=== PATIENT | female | born 1960 | race Two or more races ===

== ENCOUNTER 2022-11-14 20:02 | Inpatient (IN) | payer MEDICAID ==
[~2022-11-14] VITALS: Ht 162.6 cm; Wt 59.6 kg
[2022-11-14 21:09] LABS: Urine Bacteria FEW /hpf (None Seen); Urine Blood Negative /uL (Negative); Urine Specific Gravity 1.004 (1.001-1.035); Urine WBC 3 /hpf (0 - 5)
[2022-11-14 22:07] LABS: Albumin 3.8 g/dL (3.4-5.0); BUN/Creatinine Ratio 14.3 (10.0-20.0); Calcium 9.5 mg/dL (8.5-10.1); Potassium 3.8 mmol/L (3.5-5.1)
[2022-11-14 22:10] LABS: Bilirubin, Total 0.4 mg/dL (0.2-1.0); Total Protein 7.8 g/dL (6.4-8.2)
[2022-11-14 22:17] LABS: Basophils # (auto) 0.1 10 ^3/uL (0-0.2); Basophils % (auto) 0.7 % (0.0-2.0); Eosinophils # (auto) 0.2 10 ^3/uL (0-0.8); Eosinophils % (auto) 2.1 % (0.0-7.0); Hematocrit 37.7 % (36.0-46.0); Lymphocytes # (auto) 3.3 10 ^3/uL (0.4-5.4); Lymphocytes % (auto) 31.7 % (10.0-50.0); Mean Corpuscular Hemoglobin 32.3 pg (28.0-32.0); Mean Corpuscular Hgb Conc. 34.5 g/dL (32.0-36.0); Mean Corpuscular Volume 93.7 fL (80.0-100.0); Monocytes # (auto) 0.8 10 ^3/uL (0-1.3); Monocytes % (auto) 7.7 % (0.0-12.0); Neutrophils % (auto) 57.8 % (37.0-80.0); Red Blood Cells 4.03 10^6/uL (4.0-5.20); Red Cell Distribution Width 13.2 % (11.8-14.3); White Blood Cell 10.3 10^3/uL (4.4-10.8)
[2022-11-15] MEDS ORDERED: ONDANSETRON HCL 4 MG/2 ML VIAL IV PRN (01:00)
[2022-11-15] MEDS ORDERED: MORPHINE SULFATE INJ 2 MG/ml SYRG IV PRN (01:00)
[2022-11-15] MEDS ORDERED: DEXTROSE (50%) 50ML SYRG IV PRN (01:00)
[2022-11-15] MEDS ORDERED: cefTRIAXone 1GM/50ML D5W 50 ML IV ONE (01:00)
[2022-11-15] MEDS ORDERED: DOCUSATE SOD 100 MG CAP PO PRN (01:00)
[2022-11-15] MEDS ORDERED: NITROGLYCERIN 0.4 MG SL TAB SL PRN (01:00)
[2022-11-15] MEDS ORDERED: ACETAMINOPHEN 325 MG TAB PO PRN (01:00)
[2022-11-15 04:35] LABS: Basophils # (auto) 0.1 10 ^3/uL (0-0.2); Eosinophils # (auto) 0.2 10 ^3/uL (0-0.8); Eosinophils % (auto) 3.3 % (0.0-7.0); Hemoglobin 11.9 g/dL (12.2-16.2); Lymphocytes # (auto) 2.4 10 ^3/uL (0.4-5.4); Mean Corpuscular Hemoglobin 32.9 pg (28.0-32.0); Monocytes # (auto) 0.5 10 ^3/uL (0-1.3); Monocytes % (auto) 7.4 % (0.0-12.0); Neutrophils # (auto) 3.2 10 ^3/uL (1.6-8.6); Neutrophils % (auto) 50.3 % (37.0-80.0); Nucleated Red Blood Cells % 0.1 %; Red Blood Cells 3.62 10^6/uL (4.0-5.20); Red Cell Distribution Width 13.2 % (11.8-14.3); White Blood Cell 6.3 10^3/uL (4.4-10.8)
[2022-11-15 04:51] LABS: Albumin 3.2 g/dL (3.4-5.0); BUN/Creatinine Ratio 13.6 (10.0-20.0); Calcium 9.1 mg/dL (8.5-10.1); Potassium 3.9 mmol/L (3.5-5.1)
[2022-11-15 04:54] LABS: Bilirubin, Total 0.5 mg/dL (0.2-1.0); Total Protein 6.7 g/dL (6.4-8.2)
[2022-11-15] MEDS: SODIUM CHLOR 0.9% PF (SALINE LOCK) 10ML VIAL/SYR IV SCH ×3 (06:19→22:00)
[2022-11-15] MEDS: InsuLIN REG 1unit/0.01ml Soln (100units/ml) SC SCH ×4 (07:00→22:00)
[2022-11-15] MEDS: ACCU-CHEK COMFORT CURVE STRIP VI SCH ×4 (07:13→22:00)
[2022-11-15] MEDS: HYDROcodone-ACET 5/325MG TAB PO PRN ×2 (10:48→20:56)
[2022-11-15] MEDS ORDERED: ASPirin 81 mg TAB PO ONE (13:15)
[2022-11-15] MEDS: cefTRIAXone 1GM/50ML D5W 50 ML IV SCH (21:08)
[2022-11-16 05:18] LABS: Basophils # (auto) 0.1 10 ^3/uL (0-0.2); Basophils % (auto) 0.8 % (0.0-2.0); Eosinophils # (auto) 0.2 10 ^3/uL (0-0.8); Eosinophils % (auto) 3.6 % (0.0-7.0); Hematocrit 36.3 % (36.0-46.0); Hemoglobin 12.7 g/dL (12.2-16.2); Lymphocytes # (auto) 2.3 10 ^3/uL (0.4-5.4); Mean Corpuscular Hemoglobin 32.5 pg (28.0-32.0); Mean Corpuscular Volume 92.9 fL (80.0-100.0); Monocytes # (auto) 0.5 10 ^3/uL (0-1.3); Monocytes % (auto) 8.3 % (0.0-12.0); Neutrophils # (auto) 3.5 10 ^3/uL (1.6-8.6); Neutrophils % (auto) 52.3 % (37.0-80.0); Nucleated Red Blood Cells % 0.1 %; Red Blood Cells 3.91 10^6/uL (4.0-5.20); Red Cell Distribution Width 13.2 % (11.8-14.3); White Blood Cell 6.6 10^3/uL (4.4-10.8)
[2022-11-16 05:31] LABS: Albumin 3.2 g/dL (3.4-5.0); Potassium 3.9 mmol/L (3.5-5.1)
[2022-11-16 05:36] LABS: BUN/Creatinine Ratio 23.7 (10.0-20.0); Bilirubin, Total 0.4 mg/dL (0.2-1.0); Total Protein 6.7 g/dL (6.4-8.2)
[2022-11-16] MEDS: SODIUM CHLOR 0.9% PF (SALINE LOCK) 10ML VIAL/SYR IV SCH ×3 (06:12→21:53)
[2022-11-16] MEDS: InsuLIN REG 1unit/0.01ml Soln (100units/ml) SC SCH ×4 (07:00→21:54)
[2022-11-16] MEDS: ACCU-CHEK COMFORT CURVE STRIP VI SCH ×4 (07:01→21:54)
[2022-11-16] MEDS: ASPirin 81 mg TAB PO SCH (10:14)
[2022-11-16 12:23] VITALS: BP 155/89
[2022-11-16 13:00] VITALS: BP 155/89
[2022-11-16 17:00] VITALS: BP 156/81
[2022-11-16 20:00] VITALS: BP 152/86
[2022-11-16] MEDS: cefTRIAXone 1GM/50ML D5W 50 ML IV SCH (21:53)
[2022-11-16 22:00] VITALS: BP 152/86
[2022-11-17] MEDS ORDERED: AMLO-489 PO (01:23)
[2022-11-17] MEDS ORDERED: ATOR20TA50 PO (01:23)
[2022-11-17] MEDS ORDERED: METF-372 PO (01:23)
[2022-11-17] MEDS ORDERED: LISI-275 PO (01:23)
[2022-11-17 05:00] VITALS: BP 132/68
[2022-11-17] MEDS: ACCU-CHEK COMFORT CURVE STRIP VI SCH ×2 (06:19→11:54)
[2022-11-17] MEDS: SODIUM CHLOR 0.9% PF (SALINE LOCK) 10ML VIAL/SYR IV SCH (06:19)
[2022-11-17] MEDS: InsuLIN REG 1unit/0.01ml Soln (100units/ml) SC SCH ×2 (06:19→11:30)
[2022-11-17 09:00] VITALS: BP 130/73
[2022-11-17] MEDS: ASPirin 81 mg TAB PO SCH (09:33)
[2022-11-17] MEDS ORDERED: ASPI-498 PO (10:29)
[2022-11-17] MEDS ORDERED: CIPR-173 PO (10:29)
[2022-11-17 13:00] VITALS: BP 126/73
== END 2022-11-17 15:30 | disposition home or self-care (01) | DRG 463 ==
LOC: ER 20:02 → TELE 11-15 00:59 → TELE-CENTR 11-16 12:23 → CENTRAL 11-16 15:14
PROVIDERS: ADMIT Nurse Practitioner Family; ATTEND Family Medicine
DX: N39.0 Urinary tract infection, site not specified (principal); E11.9 Type 2 diabetes mellitus without complications; G44.009 Cluster headache syndrome, unspecified, not intractable; E78.00 Pure hypercholesterolemia, unspecified; Z20.822 Contact with and (suspected) exposure to COVID-19; M79.622 Pain in left upper arm; F32.A Depression, unspecified; I10 Essential (primary) hypertension; Z86.73 Personal history of transient ischemic attack (TIA), and cerebral infarction without residual deficits; Z90.49 Acquired absence of other specified parts of digestive tract
CPT/HCPCS: 36415; 70450; 72125; 80053; 81001; 82962; 84484; 85025; 87086; 87426; 87804; 93005; 96365; G0378; J0696; J1815

== ENCOUNTER 2023-03-02 12:27 | Emergency (ER) | payer MEDICAID ==
[~2023-03-02] VITALS: Ht 152.4 cm; Wt 57.4 kg
[~2023-03-02 12:27] MED LIST: AMLO1TAB22 PO; ASPI-498 PO; ATOR20TA50 PO; CIPR-173 PO; LISI-275 PO; METF-372 PO
[2023-03-02 14:07] VITALS: BP 121/79
[2023-03-02] MEDS ORDERED: ASPI1TAB20 PO (14:42)
== END 2023-03-02 14:57 | disposition home or self-care (01) ==
LOC: ER 12:27
DX: H92.03 Otalgia, bilateral (principal); E11.9 Type 2 diabetes mellitus without complications; F32.9 Major depressive disorder, single episode, unspecified; I10 Essential (primary) hypertension; E78.5 Hyperlipidemia, unspecified; Z79.82 Long term (current) use of aspirin; Z79.899 Other long term (current) drug therapy; Z90.89 Acquired absence of other organs

== ENCOUNTER 2024-11-12 16:42 | Emergency (ER) | payer OTHER, MEDICAID ==
[~2024-11-12] VITALS: Ht 157.5 cm; Wt 51.0 kg
[~2024-11-12 16:42] MED LIST changes: +ASPI1TAB20 PO
--- NOTE | 2024-11-12 17:24 | ECG ---
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
--- NOTE | 2024-11-12 18:16 | ED.PDOC ---
HPI (NEURO) HPI Comments 64-year-old female presents with a chief complaint of right-sided forehead headache with the associated right eye vision loss for the last four days. Pain is nonradiating, describes as sharp and rates her pain a 6/10. Patient also mentions that she has been having spontaneous blurred vision in her right eye. Patient denies any trauma or falls prior to onset of symptoms. PMHx: DM, HLD, HTN, Depression PSHx: Appendectomy, Cholecystectomy HPI: Poor Historian. REVIEW OF SYSTEMS: CONSTITUTIONAL: Denies acute: fever, diaphoresis, chills, generalized weakness. HEAD: Denies acute: photophobia Eyes: Denies acute: Double vision, eye pain, eye discharge. EARS: Denies acute: tinnitus, hearing loss, ear discharge, ear pain, THROAT: Denies acute: sore throat, swelling, difficulty swallowing , pain with swallowin g, change in voice. NECK: Denies acute: neck pain, neck swelling, stiff neck. HEART: Denies acute : chest pain, palpitations, LUNGS: Denies acute: SOB, wheezing, cough, hemoptysis ABDOMEN: Denies acute: abdominal pain, Nausea, Vomiting, diarrhea, melena , hematemesis, hematochezia SKIN: Denies acute: rash, redness, lesions, itchiness. EXTREMITIES: Denies acute: calf pain, numbness, tingling, weakness, denies pain in extremity. Denies acute: Low back pain. Neuro: Denies acute: focal neurological deficit, motor or sensory focal neurological deficit, tremors, seizure like activity, confusion, dizziness, change in mental status, loss of bowel or bladder function, cauda equina like symptoms. : Denies acute: dysuria, hematuria, flank pain, increase in urinary frequency. PSYCH: Denies acute: hallucination, suicidal ideation, homicidal ideation. FEMALE: Denies acute: abnormal vaginal bleeding, foul odor, unusual discharge. PHYSICAL EXAM: General: no acute distress, awake and alert. Head: normocephalic, atraumatic. Neck: supple, trachea is midline, no swelling. Throat: Normal phonation. Eyes:, no erythema, no purulent discharge, no proptosis, no icterus. No swelling Heart: regular rate, regular rhythm, no significant murmur appreciated. Lungs: no apparent respiratory distress, Able to speak in full sentences. No wheezing, no rhonchi, no crackles. No stridors Clear to auscultation bilaterally. Abdomen: non tender to palpation, non distended, soft, no guarding, no rebound, + bowel sounds. Neuro: Awake, Alert, oriented to name, self, situation, follows commands GCS=15. Speech is normal. Skin: no petechia, no purpura, no cyanosis, non-pale, not jaundice. Lower extremities: --no - Pitting edema no deformity, no focal swelling, no calf TTP. Makes eye contact. moves all four extremities. Face: no apparent facial droop. Ambulating in the ED independently. Ears: Normal appearing TM b/l, Stroke: finger to nose cerebellar testing is intact. No pronator drift. PERRLA, EOM-I CN 2-12 are grossly intact, Pedal pulses are palpable. No nystagmus. No nuchal rigidity, Kernig's sign, Brudzinski's sign, no meningeal signs. ED COURSE: Chief Complaint: Eye Problem Time Seen by MD: 18:12 Primary Care Provider: NONE Reviewed Notes: Nurses Notes, Medications, Allergies Information Source: Patient Mode of Arrival: Ambulatory Past Medical History PAST MEDICAL HISTORY: Depression, DM, High Lipids, HTN Surgical History: Appendectomy, Cholecystectomy ELECTRONIC OPERATOR History: No Pertinent ELECTRONIC OPERATOR History Family History Family History: Reviewed,noncontributory to illness Social History Smoker: Non-Smoker Alcohol: Denies ETOH Use Drugs: Denies Drug Use Lives In: Home Was a procedure done? Was a procedure done?: No Differential Diagnosis (SZ) Seizure: N/A General Weakness: Other (Retinal detachment, glaucoma, retinal artery stenosis, retinal venous stenosis, stroke,) Headache: Trigeminal Neuralgia, Other (DDX include Sinusitis, migraine, meningitis, hypertension, intracranial mass/bleed, stroke, radiculopathy, vertebrobasillary insufficiency, cephalgia, pseudotumor cerebri, cerebellar ischemia/infarct, carotid stenosis, lacunar infarct, vertebral/carotid artery dissection, hydrocephalus, temporal arteritis, dura venous sinus thrombosis.) X-Ray, Labs, Meds, VS Vital Signs Date Time Temp Pulse Resp B/P (MAP) Pulse Ox O2 Delivery O2 Flow Rate FiO2 11/12/24 21:50 82 17 97 Room Air* 0 21 11/12/24 21:50 98.4 82 17 116/69 (85) 95 98.4 11/12/24 17:24 98.1 93 16 134/80 (98) 99 98.1 11/12/24 17:23 97 Lab Test 11/12/24 20:50 11/12/24 17:52 Range/Units Troponin I High Sensitivity 6 6 </=34 ng/L White Blood Count 6.4 4.4-10.8 10^3/uL Red Blood Count 3.98 L 4.0-5.20 10^6/uL Hemoglobin 12.5 12.2-16.2 g/dL Hematocrit 38.0 36.0-46.0 % Mean Corpuscular Volume 95.3 80.0-100.0 fL Mean Corpuscular Hemoglobin 31.3 28.0-32.0 pg Mean Corpuscular Hemoglobin Concent 32.9 32.0-36.0 g/dL Red Cell Distribution Width 14.8 H 11.8-14.3 % Platelet Count 404 140-450 10^3/uL Mean Platelet Volume 6.8 L 6.9-10.8 fL Neutrophils (%) (Auto) 51.9 37.0-80.0 % Lymphocytes (%) (Auto) 37.6 10.0-50.0 % Monocytes (%) (Auto) 7.2 0.0-12.0 % Eosinophils (%) (Auto) 2.1 0.0-7.0 % Basophils (%) (Auto) 1.2 0.0-2.0 % Neutrophils # (Auto) 3.3 1.6-8.6 10 ^3/uL Lymphocytes # (Auto) 2.4 0.4-5.4 10 ^3/uL Monocytes # (Auto) 0.5 0-1.3 10 ^3/uL Eosinophils # (Auto) 0.1 0-0.8 10 ^3/uL Basophils # (Auto) 0.1 0-0.2 10 ^3/uL Nucleated Red Blood Cells 0.0 % Erythrocyte Sedimentation Rate 9 0-20 mm/hr Sodium Level 140 136-145 mmol/L Potassium Level 3.6 3.5-5.1 mmol/L Chloride Level 106 98-107 mmol/L Carbon Dioxide Level 25 20-31 mmol/L Anion Gap 9 5-15 Blood Urea Nitrogen 9 9-23 mg/dL Creatinine 0.59 0.550-1.02 mg/dL Glomerular Filtration Rate Calc 99 >90 mL/min BUN/Creatinine Ratio 15.3 10.0-20.0 Serum Glucose 100 74-106 mg/dL Calcium Level 10.2 8.7-10.4 mg/dL Total Bilirubin 0.4 0.2-1.0 mg/dL Aspartate Amino Transferase (AST) 13 13-40 U/L Alanine Aminotransferase (ALT) 11 7-40 U/L Alkaline Phosphatase 64 46-116 U/L C-Reactive Protein High Sensitivity < 0.02 <1.0 mg/dL Total Protein 7.4 5.7-8.2 g/dL Albumin 4.8 3.2-4.8 g/dL PATIENT: ALLY PRINCEACCT: [id number]: [id number] : 1960 LOC: ER ROOM / BED: / AGE / SEX: 64 / F ADM STATUS: REG ER SERVICE 1720 ORDERING PHYSICIAN: TRISHA FERNANDEZ DO PROCEDURE(s): OB2CT - ORBITS W CONTRAST ONLY REASON: right eye vision loss ORDER NUMBER(s): [id number], ACCESSION NUMBER(s): [id number] INDICATION: right eye vision loss EXAM DATE: 11/12/2024 06:51 PM COMPARISON: None TECHNIQUE: CT of the orbits without intravenous contrast. RADIATION DOSE: CTDIvol: 62.68 mGy, DLP: 2019.58 mGy*cm FINDINGS: The orbits, globes and extraocular muscles appear intact. There is no evidence of acute fracture. The paranasal sinuses are clear. The visualized brain is unremarkable. The surrounding soft tissues and osseous structures are otherwise unremarkable. There are no intra or extraconal lesions. The extraocular muscles appear symmetrical. Optic nerves appear symmetrical IMPRESSION: 1. CT orbits within normal limits. 2. ATED BY: TERE DE JESUS Jr. DO DICTATED DATE/TIME: 11/12/241931 SIGNED BY: TERE DE JESUS Jr., DO SIGNED DATE/TIME: 11/12/241931 PATIENT: ALLY PRINCE ACCT: [id number] UNIT: [id number] : 1960 LOC: ER ROOM / BED: / AGE / SEX: 64 / F ADM STATUS: REG ER SERVICE 1720 ORDERING PHYSICIAN: TRISHA FERNANDEZ DO PROCEDURE(s): [place] - ANGIO HEAD/Neck REASON: right eye visual lost ORDER NUMBER(s): [id number], ACCESSION NUMBER(s): [id number] INDICATION: right eye visual lost COMPARISON: Non contrast CT brain 11/14/2022 TECHNIQUE: CTA head without and with intravenous contrast. CTA neck with intravenous contrast. 3D image postprocessing was performed on a dedicated workstation and images were used for interpretation and reporting. Radiation Dose Information: CT Dose: CTDI volume is mGy. Dose-length product is mGy*cm FINDINGS: CT head: There is no evidence of intracranial hemorrhage, infarct, extra-axial collection, mass effect, midline shift, herniation or hydrocephalus. The ventricles, sulci and cisterns are normal. The corbett-white differentiation is intact. Visualized paranasal sinuses and mastoid air cells are clear. Soft tissues and osseous structures are unremarkable. CTA head: No significant abnormality is identified in the intracranial ICAs, MCAs, and AC As.The intracranial vertebral arteries, basilar artery, and grain origination specialist are also unremarkable. left COMPONENT ENGINEER and -type right COMPONENT ENGINEER with smal right P1 segment. Visualized intracranial venous structures are grossly unremarkable. CTA neck: Aortic arch and proximal great vessels demonstrate no significant abnormality. Left common, internal and external carotid arteries are within normal limits. Right common, internal and external carotid arteries are within normal limits. Cervical segments of right and left vertebral arteries are within normal limits. Limited visualized lung apices are clear. Soft tissues and osseous structures are unremarkable. IMPRESSION: 1. No evidence of intracranial hemorrhage, mass effect or hydrocephalus. No appreciable change compared to the prior CT scan from October 2022. 2. No evidence of hemodynamically significant intracranial stenosis, proximal occlusion, or aneurysm. 3. No evidence of hemodynamically significant cervical stenosis or dissection. All CT scans at this medical facility are performed using dose modulation techniques as appropriate to a performed exam including the following: Automated exposure control was utilized; adjustment of the MA and/or KV according to patient size; and use of iterative reconstruction technique. ATED BY: BHARAT PLEITEZ MD DICTATED DATE/TIME: 11/12/241947 SIGNED BY: BHARAT PLEITEZ MD SIGNED DATE/TIME: 11/12/241947 Time of 1ST Reevaluation: 18:42 Reevaluation 1ST: Unchanged Time of 2ND Reevaluation: 21:42 (I interviewed and re-evaluated the patient again at this time. It turns out she has been having right eye vision loss for at least six months and these episodes of headache are also chronic in nature. Coal Hauler was used) Patient Education/Counseling: Diagnosis, Treatment Family Education/Counseling: Other Comments Patient presented with the above HPI.---neuro complaints---workup was initiated. patient was found with the above mentioned diagnosis. the following medications were ordered: please refer to order lists of meds and tests obtained by myself Dr. Fernandez. Patient ED course and VS have been stabilized. Patient has been reassessed in the ED and remained in a stable condition. Pertinent incidental findings were discussed with the patient and/or family. Patient/family voices understanding and is agreeable with plan. Patient has been observed in the ED adequate length of time to insure improvement/stability. Escalation of care considered: Consideration of escalation to observation or admission It turns out all her findings are chronic for at least six months. Patient was DISCHARGED home in a stable condition. All the reports of any imaging studies that were ordered by myself were reviewed by myself. Departure 1 Departure Time of Disposition: 20:14 Impression: Primary Impression: Vision loss, right eye Additional Impression: Right-sided headache Disposition: 01 HOME / SELF CARE / HOMELESS Condition: Stable Additional Instructions: Additional discharge instructions: You MUST follow-up with your primary care/family doctor in 1 to 2 days. If you are unable to see your primary care/family doctor, please return to our emergency room for re-assessment and re-evaluation in 1 to 2 days. Return to the emergency room here in our facility or to the nearest ER JUNIOR if your symptoms change or worsen. CONSULTATIONS: you MUST Follow-up for consultation as soon as possible with: Dr. ophthalmology and neurology in 1-2 days. Please call for appointment. You MUST call the consultants office yourself to make an appointment. You may need to arrange that through your insurance and/or your primary/family doctor. If you are unable to see the window covering sales consultant in 1 to 2 days, you must return to our emergency room (or any other ER of your choice) for re-assessment and re- evaluation. Adequate fluid hydration. Below is a copy of your radiological report for follow up: PATIENT: ALLY PRINCE ACCT: [id number] UNIT: [id number] : 1960 LOC: ER ROOM / BED: / AGE / SEX: 64 / F ADM STATUS: REG ER SERVICE 19 ORDERING PHYSICIAN: TRISHA FERNANDEZ DO PROCEDURE(s): OB2CT - ORBITS W CONTRAST ONLY REASON: right eye vision loss ORDER NUMBER(s): [id number], ACCESSION NUMBER(s): [id number] INDICATION: right eye vision loss EXAM DATE: 11/12/2024 06:51 PM COMPARISON: None TECHNIQUE: CT of the orbits without intravenous contrast. RADIATION DOSE: CTDIvol: 62.68 mGy, DLP: 2019.58 mGy*cm FINDINGS: The orbits, globes and extraocular muscles appear intact. There is no evidence of acute fracture. The paranasal sinuses are clear. The visualized brain is unremarkable. The surrounding soft tissues and osseous structures are otherwise unremarkable. There are no intra or extraconal lesions. The extraocular muscles appear symmetrical. Optic nerves appear symmetrical IMPRESSION: 1. CT orbits within normal limits. ATED BY: TERE DE JESUS Jr., DO DICTATED DATE/TIME: 11/12/241931 SIGNED BY: TERE DE JESUS Jr., DO SIGNED DATE/TIME: 11/12/241931 PATIENT: ALLY PRINCE ACCT: [id number] UNIT: [id number] : 1960 LOC: ER ROOM / BED: / AGE / SEX: 64 / F ADM STATUS: REG ER SERVICE 19 ORDERING PHYSICIAN: TRISHA FERNANDEZ DO PROCEDURE(s): [place] - ANGIO HEAD/Neck REASON: right eye visual lost ORDER NUMBER(s): [id number], ACCESSION NUMBER(s): [id number] INDICATION: right eye visual lost COMPARISON: Non contrast CT brain 11/14/2022 TECHNIQUE: CTA head without and with intravenous contrast. CTA neck with intravenous contrast. 3D image postprocessing was performed on a dedicated workstation and images were used for interpretation and reporting. Radiation Dose Information: CT Dose: CTDI volume is mGy. Dose-length product is mGy*cm FINDINGS: CT head: There is no evidence of intracranial hemorrhage, infarct, extra-axial collection, mass effect, midline shift, herniation or hydrocephalus. The ventricles, sulci and cisterns are normal. The corbett-white differentiation is intact. Visualized paranasal sinuses and mastoid air cells are clear. Soft tissues and osseous structures are unremarkable. CTA head: No significant abnormality is identified in the intracranial ICAs, MCAs, and ACAs.The intracranial vertebral arteries, basilar artery, and grain origination specialist are also unremarkable. left COMPONENT ENGINEER and -type right COMPONENT ENGINEER with smal right P1 segment. Visualized intracranial venous structures are grossly unremarkable. CTA neck: Aortic arch and proximal great vessels demonstrate no significant abnormality. Left common, internal and external carotid arteries are within normal limits. Right common, internal and external carotid arteries are within normal limits. Cervical segments of right and left vertebral arteries are within normal limits. Limited visualized lung apices are clear. Soft tissues and osseous structures are unremarkable. IMPRESSION: 1. No evidence of intracranial hemorrhage, mass effect or hydrocephalus. No appreciable change compared to the prior CT scan from October 2022. 2. No evidence of hemodynamically significant intracranial stenosis, proximal occlusion, or aneurysm. 3. No evidence of hemodynamically significant cervical stenosis or dissection. All CT scans at this medical facility are performed using dose modulation techniques as appropriate to a performed exam including the following: Automated exposure control was utilized; adjustment of the MA and/or KV according to patient size; and use of iterative reconstruction technique. ATED BY: BHARAT PLEITEZ MD DICTATED DATE/TIME: 11/12/241947 SIGNED BY: BHARAT PLEITEZ MD SIGNED DATE/TIME: 11/12/241947 Discharged With: Self Critical Care Note Critical Care Time?: Yes (35 min-critical care time only) I personally scribed for TRISHA FERNANDEZ DO ([email or web address]) on 11/12/24 at 18:16. Electronically submitted by Ramos Ivy ([email or web address]). I personally scribed for TRISHA FERNANDEZ DO ([email or web address]) on 11/12/24 at 20:49. Electronically submitted by Ramos Ivy ([email or web address]). I personally scribed for TRISHA FERNANDEZ DO ([email or web address]) on 11/12/24 at 20:59. Electronically submitted by Ramos Ivy ([email or web address]). TRISHA FERNANDEZ DO Nov 12, 2024 18:16
[2024-11-12 18:26] LABS: Basophils # (auto) 0.1 10 ^3/uL (0-0.2); Basophils % (auto) 1.2 % (0.0-2.0); Eosinophils # (auto) 0.1 10 ^3/uL (0-0.8); Eosinophils % (auto) 2.1 % (0.0-7.0); Hemoglobin 12.5 g/dL (12.2-16.2); Lymphocytes # (auto) 2.4 10 ^3/uL (0.4-5.4); Lymphocytes % (auto) 37.6 % (10.0-50.0); Mean Corpuscular Hemoglobin 31.3 pg (28.0-32.0); Mean Corpuscular Hgb Conc. 32.9 g/dL (32.0-36.0); Mean Corpuscular Volume 95.3 fL (80.0-100.0); Monocytes # (auto) 0.5 10 ^3/uL (0-1.3); Monocytes % (auto) 7.2 % (0.0-12.0); Neutrophils # (auto) 3.3 10 ^3/uL (1.6-8.6); Neutrophils % (auto) 51.9 % (37.0-80.0); Platelet Count (auto) 404 10^3/uL (140-450); Red Blood Cells 3.98 10^6/uL (4.0-5.20); Red Cell Distribution Width 14.8 % (11.8-14.3); White Blood Cell 6.4 10^3/uL (4.4-10.8)
[2024-11-12 18:38] LABS: Alanine Aminotransferase 11 U/L (7-40); Albumin 4.8 g/dL (3.2-4.8); Alkaline Phosphatase 64 U/L (46-116); Anion Gap 9 (5-15); BUN/Creatinine Ratio 15.3 (10.0-20.0); Calcium 10.2 mg/dL (8.7-10.4); Carbon Dioxide 25 mmol/L (20-31); Chloride 106 mmol/L (98-107); Glucose 100 mg/dL (74-106); Potassium 3.6 mmol/L (3.5-5.1); Sodium 140 mmol/L (136-145); Total Protein 7.4 g/dL (5.7-8.2)
[2024-11-12 18:39] LABS: Bilirubin, Total 0.4 mg/dL (0.2-1.0)
[2024-11-12 18:41] LABS: Aspartate Aminotransferase 13 U/L (13-40); Blood Urea Nitrogen 9 mg/dL (9-23); CRP High Sensitivity < 0.02 mg/dL (<1.0)
[2024-11-12 18:55] LABS: Erythrocyte Sedimentation Rate 9 mm/hr (0-20)
--- NOTE | 2024-11-12 19:35 | DVH ---
INDICATION: right eye vision loss EXAM DATE: 11/12/2024 06:51 PM COMPARISON: None TECHNIQUE: CT of the orbits without intravenous contrast. RADIATION DOSE: CTDIvol: 62.68 mGy, DLP: 2019.58 mGy*cm FINDINGS: The orbits, globes and extraocular muscles appear intact. There is no evidence of acute fracture. T he paranasal sinuses are clear. The visualized brain is unremarkable. The surrounding soft tissues and osseous structures are otherwise unremarkable. There are no intra or extraconal lesions. The extraocular muscles appear symmetrical. Optic nerves appear symmetrical IMPRESSION: 1. CT orbits within normal limits. 2.
--- NOTE | 2024-11-12 19:50 | DVH ---
INDICATION: right eye visual lost COMPARISON: Non contrast CT brain 11/14/2022 TECHNIQUE: CTA head without and with intravenous contrast. CTA neck with intravenous contrast. 3D image postprocessing was performed on a dedicated workstation and images were used for interpretation and reporting. Radiation Dose Information: CT Dose: CTDI volume is mGy. Dose-length product is mGy*cm FINDINGS: CT head: There is no evidence of intracranial hemorrhage, infarct, extra-axial collection, mass effect, midli ne shift, herniation or hydrocephalus. The ventricles, sulci and cisterns are normal. The corbett-whit e differentiation is intact. Visualized paranasal sinuses and mastoid air cells are clear. Soft ti ssues and osseous structures are unremarkable. CTA head: No significant abnormality is identified in the intracranial ICAs, MCAs, and ACAs.The intracranial ve rtebral arteries, basilar artery, and dowel machine operator are also unremarkable. left LITHOGRAPHIC ARTIST and -type right LITHOGRAPHIC ARTIST with smal right P1 segment. Visualized intracranial venous structures are grossly unremarkable. CTA neck: Aortic arch and proximal great vessels demonstrate no significant abnormality. Left common, internal and external carotid arteries are within normal limits. Right common, internal and external carotid arteries are within normal limits. Cervical segments of right and left vertebral arteries are within normal limits. Limited visualized lung apices are clear. Soft tissues and osseous structures are unremarkable. IMPRESSION: 1. No evidence of intracranial hemorrhage, mass effect or hydrocephalus. No appreciable change johnna red to the prior CT scan from October 2022. 2. No evidence of hemodynamically significant intracranial stenosis, proximal occlusion, or aneurysm. 3. No evidence of hemodynamically significant cervical stenosis or dissection. All CT scans at this medical facility are performed using dose modulation techniques as appropriate t o a performed exam including the following: Automated exposure control was utilized; adjustment of th e MA and/or KV according to patient size; and use of iterative reconstruction technique.
[2024-11-12] MEDS: IOHEXOL 350 MG/ML 100ML IJ ONE (20:18)
[2024-11-12 21:50] VITALS: BP 116/69; PULSE 82; RESP 17; TEMP 98.4; O2SAT 97
== END 2024-11-12 22:00 | disposition home or self-care (01) ==
LOC: ER 16:42
DX: H54.61 Unqualified visual loss, right eye, normal vision left eye (principal); R51.9 Headache, unspecified; I10 Essential (primary) hypertension; E11.9 Type 2 diabetes mellitus without complications; E78.5 Hyperlipidemia, unspecified; F32.A Depression, unspecified; Z90.49 Acquired absence of other specified parts of digestive tract
CPT/HCPCS: 36415; 70481; 70496; 70498; 80053; 84484; 85025; 85652; 86141; 93005; 99285; Q9967

== ENCOUNTER 2025-02-21 14:41 | Inpatient (IN) | payer MEDICAID, MEDICARE, OTHER ==
[~2025-02-21] VITALS: Ht 157.5 cm; Wt 58.4 kg
[2025-02-21 15:24] LABS: Hematocrit 36.7 % (36.0-46.0); Hemoglobin 12.5 g/dL (12.2-16.2); Mean Corpuscular Hemoglobin 32.1 pg (28.0-32.0); Mean Corpuscular Volume 94.1 fL (80.0-100.0); Nucleated Red Blood Cells % 0.1 %
[2025-02-21 15:37] LABS: Chloride 105 mmol/L (98-107); Potassium 3.9 mmol/L (3.5-5.1); Sodium 140 mmol/L (136-145)
[2025-02-21 15:38] LABS: Anion Gap 9 (5-15); Carbon Dioxide 26 mmol/L (20-31)
[2025-02-21 15:39] LABS: Calcium 10.2 mg/dL (8.7-10.4)
[2025-02-21 15:44] LABS: BUN/Creatinine Ratio 16.4 (10.0-20.0); Blood Urea Nitrogen 9 mg/dL (9-23); Glucose 91 mg/dL (74-106)
--- NOTE | 2025-02-21 15:48 | ED.PDOC ---
General HPI Comments 64-year-old female who comes in with chief complaint of right-sided flank pain x1 day. The patient has been having some nausea and diarrhea as well for one day. The patient states that the pain radiates around to the right lower quadrant area. The patient denies a history of kidney stones but she has has a history of gallstones with gallbladder removal in the past. At this time she states that the pain is a 5/10. She is able to ambulate into the emergency department's without any difficulty. The patient denies any dysuria or dark urine. Chief Complaint: Abdominal Pain Time Seen by MD: 14:44 Primary Care Provider: NONE Reviewed notes: Nurses Notes, Medications, Allergies (No allergies to medications) Allergies: Coded Allergies: NO KNOWN ALLERGIES (Unverified , 05/18/15) Home Meds Active Scripts Aspirin (Aspir-81) 81 Mg Tab, 81 MG PO DAILY for 60 Days, #60 TAB 0 Refills Prov:KIERA LAINEZ [employer]IONS ANALYST 03/02/23 Aspirin (ASPIRIN 81) 81 Mg Tab, 81 MG PO DAILY, #90 TAB Prov:JIMMIE MOON MD 11/17/22 Ciprofloxacin Hcl (Cipro) 500 Mg Tab, 1 TAB PO BID, #14 TAB Prov:JIMMIE MOON MD 11/17/22 Reported Medications Atorvastatin Calcium (ATORVASTATIN CALCIUM) 20 Mg Tab, 1 TAB PO 11/17/22 Lisinopril (Lisinopril) 5 Mg Tab, 1 TAB PO DAILY 11/17/22 Amlodipine Besylate (Amlodipine Besylate) 5 Mg Tab, 1 TAB PO DAILY 11/17/22 Metformin Hydrochloride (Metformin Hcl) 1,000 Mg Tab, 1 TAB PO BID 11/17/22 Information Source: Patient Mode of Arrival: Ambulatory Severity: Moderate Inability to void: None Timing: Days Duration: Since onset Prehospital treatment: None Onset: Spontaneous Symptoms: None History of: None Location: (R) Flank Modifying factors: None associated signs and symptoms: Abdominal Pain, Nausea, Other (Diarrhea) Past Medical History PAST MEDICAL HISTORY: Depression, DM, High Lipids, HTN Surgical History: Appendectomy, Cholecystectomy HOME HOSPICE AIDE History: No Pertinent HOME HOSPICE AIDE History Family History Family History: Reviewed,noncontributory to illness Social History Smoker: Non-Smoker Alcohol: Denies ETOH Use Drugs: Denies Drug Use Lives In: Home Constitutional: denies: chills, diaphoresis, fatigue, fever, malaise, sweats, weakness, others EENTM: denies: blurred vision, double vision, ear bleeding, ear discharge, ear drainage, ear pain, ear ringing, eye pain, eye redness, hearing loss, mouth pain, mouth swelling, nasal discharge, nose bleeding, nose congestion, nose pain, photophobia, tearing, throat pain, throat swelling, voice changes, others Respiratory: denies: cough, hemoptysis, orthopnea, SOB at rest, shortness of breath, SOB with excertion, stridor, wheezing, others Cardiovascular: denies: chest pain, dizzy spells, diaphoresis, Dyspnea on exertion, edema, irregular heart beat, left arm pain, lightheadedness, palpitations, PND, syncope, others Gastrointestinal: reports: abdominal pain; denies: abdomen distended, blood streaked bowels, constipated, diarrhea, dysphagia, difficulty swallowing, hematemesis, melena, nausea, poor appetite, poor fluid intake, rectal bleeding, rectal pain, vomiting, others Genitourinary: reports: flank pain (Right-sided flank pain); denies: abnormal vagina bleeding, burning, dyspareunia, dysuria, frequency, hematuria, incontinence, pain, , vagina discharge, urgency, others Neurological: denies: dizziness, fainting, headache, left sided numbness, left sided weakness, numbness, paresthesia, pre-existing deficit, right sided numbness, right sided weakness, seizure, speech problems, tingling, tremors, weakness, others Musculoskeletal: denies: back pain, gout, joint pain, joint swelling, muscle pain, muscle stiffness, neck pain, others Integumetry: denies: bruises, change in color, change in hair/nails, dryness, laceration, lesions, lumps, rash, wounds, others Allergic/Immunocompromised: denies: Difficulty Healing, Frequent Infections, Hives, Itching, others Hematologic/Lymphatic: denies: anemia, blood clots, easy bleeding, easy bruising, swollen glands, others Endocrine: denies: excessive hunger, excessive sweating, excessive thirst, excessive urination, flushing, intolerance to cold, intolerance to heat, unexplained weight gain, unexplained weight loss, others Psychiatric: denies: anxiety, bipolar disorder, depression, hopeless, panic disorder, schizophrenia, sleepless, suicidal, others Physical Exam General Appearance: Moderate Distress HEENT: Normal ENT Inspection, Pharynx Normal, TMs Normal Neck: Full Range of Motion, Non-Tender, Normal, Normal Inspection Respiratory: Chest Non-Tender, Lungs Clear, No Accessory Muscle Use, No Respiratory Distress, Normal Breath Sounds Cardiovascular: No Edema, No JVD, No Murmur, No Gallop, Normal Peripheral Pulses, Regular Rate/Rhythm Breast Exam: Deferred Gastrointestinal: No Organomegaly, Non Tender, No Pulsatile Mass, Normal Bowel Sounds, Soft Genitalia: Deferred Pelvic: Deferred Rectal: Deferred Extremities: No calf tenderness, Normal capillary refill, Normal inspection, Normal range of motion, Non-tender, No pedal edema Musculoskeletal : Location: Right Extremity Location: Back Apperance: Tenderness: Mild Neurologic: Alert, gate mortiser operator II-XII nml as Tested, No Motor Deficits, Normal Affect, Normal Mood, No Sensory Deficits Cerebellar Function: Normal Reflexes: Normal Skin: Dry, Normal Color, Warm Lymphatic: No Adenopathy Was a procedure done? Was a procedure done?: No Differential Diagnosis Kidney stone (Female): Renal failure, Strain, Urinary obstruction, Urolithiasis X-Ray, Labs, Meds, VS Vital Signs Date Time Temp Pulse Resp B/P (MAP) Pulse Ox O2 Delivery O2 Flow Rate FiO2 02/21/25 14:59 98.9 81 17 119/70 (86) 98 98.9 Lab Test 02/21/25 15:11 Range/Units White Blood Count 8.4 4.4-10.8 10^3/uL Red Blood Count 3.90 L 4.0-5.20 10^6/uL Hemoglobin 12.5 12.2-16.2 g/dL Hematocrit 36.7 36.0-46.0 % Mean Corpuscular Volume 94.1 80.0-100.0 fL Mean Corpuscular Hemoglobin 32.1 H 28.0-32.0 pg Mean Corpuscular Hemoglobin Concent 34.1 32.0-36.0 g/dL Red Cell Distribution Width 13.7 11.8-14.3 % Platelet Count 312 140-450 10^3/uL Mean Platelet Volume 6.6 L 6.9-10.8 fL Neutrophils (%) (Auto) 61.9 37.0-80.0 % Lymphocytes (%) (Auto) 29.5 10.0-50.0 % Monocytes (%) (Auto) 6.5 0.0-12.0 % Eosinophils (%) (Auto) 1.3 0.0-7.0 % Basophils (%) (Auto) 0.8 0.0-2.0 % Neutrophils # (Auto) 5.2 1.6-8.6 10 ^3/uL Lymphocytes # (Auto) 2.5 0.4-5.4 10 ^3/uL Monocytes # (Auto) 0.5 0-1.3 10 ^3/uL Eosinophils # (Auto) 0.1 0-0.8 10 ^3/uL Basophils # (Auto) 0.1 0-0.2 10 ^3/uL Nucleated Red Blood Cells 0.1 % Sodium Level 140 136-145 mmol/L Potassium Level 3.9 3.5-5.1 mmol/L Chloride Level 105 98-107 mmol/L Carbon Dioxide Level 26 20-31 mmol/L Anion Gap 9 5-15 Blood Urea Nitrogen 9 9-23 mg/dL Creatinine 0.55 0.550-1.02 mg/dL Glomerular Filtration Rate Calc 101 >90 mL/min BUN/Creatinine Ratio 16.4 10.0-20.0 Serum Glucose 91 74-106 mg/dL Calcium Level 10.2 8.7-10.4 mg/dL IMPRESSION: 1. Nonspecific nondilated fluid-filled small bowel loops. Findings may be seen with ileus or enteritis in the appropriate clinical setting. No small bowel obstruction. 2. Nonspecific mild circumferential thickening of the bladder wall. Correlate clinically to exclude cystitis. 3. No hydronephrosis. No renal or ureteral calculi. 4. Limited examination for the reasons described above. The patient's CBC is within normal limits The chemistry panel is within normal limits. An IV Hep-Lock was established. The patient is being admitted to the hospitalist at this time. Images Reviewed?: Images reviewed and evaluated by me Time of 1ST Reevaluation: 15:52 Reevaluation 1ST: Unchanged Patient Education/Counseling: Diagnosis, Treatment, Prognosis Family Education/Counseling: No Family Present SEPSIS Sepsis Screen Date sepsis recognized/suspect: Feb 21, 2025 Time Sepsis recognized/suspect: 1459 Recent Procedure: No On Antibiotic Therapy: No Respiratory Rate >20: No Heart Rate >90: No Temp<36 C (96.8 F) or >38.3 C: No SBP <90 or MAP <65 mmHG: No New Acute Mental Status Change: No Is the patient on CPAP, BIPAP,: No Physician Orders Ct Ab Pel Wo Con-No Oral Or Iv (02/21/25 14:55) Urinalysis (02/21/25 14:55) Vital Signs Date Time Temp Pulse Resp B/P (MAP) Pulse Ox O2 Delivery O2 Flow Rate FiO2 02/21/25 14:59 98.9 81 17 119/70 (86) 98 98.9 Laboratory Tests Test 02/21/25 15:11 White Blood Count 8.4 10^3/uL (4.4-10.8) Departure 1 Departure Time of Disposition: 17:18 Impression: Primary Impression: Intractable abdominal pain Additional Impressions: Enteritis Ileus Disposition: ADMITTED INPATIENT Admit to: Med Surg Condition: Fair Critical Care Note Critical Care Time?: No Stability Stability form required: Yes Unstable for transfer: ED Physician Assesment (Clinical assesment) Heart Score Heart Score: Heart Score Response (Comments) Value History N/A 0 EKG N/A 0 Age N/A 0 Risk Factors N/A 0 Troponin N/A 0 Total 0 I personally scribed for JARRET PAINTER MD ([email or web address]) on 02/21/25 at 16:02. Electronically submitted by Richy Milan ([email or web address]). JARRET PAINTER MD Feb 21, 2025 15:48
--- NOTE | 2025-02-21 15:54 | DVH ---
CLINICAL INFORMATION: Right flank pain. TECHNIQUE: Axial CT images of the abdomen and pelvis were obtained without IV contrast. Coronal and s agittal reformatted images were obtained, reviewed, and stored. Evaluation of the parenchymal organs is limited without IV contrast. Evaluation of the bowel and mesentery is limited without oral contras t. All CT scans at this medical facility are performed using dose modulation techniques as appropriat e to a performed exam including the following: Automated exposure control was utilized; adjustment of the MA and/or KV according to patient size; and use of iterative reconstruction technique. CTDIvol = 6.75 mGy DLP = 360.32 mGy-cm COMPARISON: None FINDINGS: Examination is limited due to prominent beam hardening artifact from the patient being sca nned with arms at sides hands overlying the upper abdomen. Lung bases: Mild atelectasis in the lung bases. Liver: Grossly unremarkable in its noncontrast enhanced appearance. No abnormal density or focal lesi on identified. Biliary: Gallbladder is not visualized, likely surgically absent. Spleen: Unremarkable. Pancreas: Grossly unremarkable in its noncontrast enhanced appearance. Adrenal glands: Unremarkable. No mass. Kidneys: No hydronephrosis. No renal or ureteral calculi. Aorta/Vascular: Moderate atherosclerotic calcification. No abdominal aortic aneurysm. Retroperitoneum: No mass or lymphadenopathy. Bowel/mesentery: No small bowel obstruction. Nonspecific nondilated fluid-filled small bowel loops. A ppendix is visualized and appears unremarkable. Pelvic organs: There is an IUD in the fundal endometrial canal, in expected position. Bladder: Mild circumferential thickening of the bladder wall Abdominal wall: No mass or hernia. Bones: No acute fracture or suspicious intraosseous lesion. IMPRESSION: 1. Nonspecific nondilated fluid-filled small bowel loops. Findings may be seen with ileus or enteriti s in the appropriate clinical setting. No small bowel obstruction. 2. Nonspecific mild circumferential thickening of the bladder wall. Correlate clinically to exclude cystitis. 3. No hydronephrosis. No renal or ureteral calculi. 4. Limited examination for the reasons described above.
[2025-02-21] MEDS ORDERED: ONDANSETRON HCL 4 MG/2 ML VIAL IV PRN (19:15)
[2025-02-21] MEDS ORDERED: ACETAMINOPHEN 325 MG TAB PO PRN (19:15)
[2025-02-21] MEDS ORDERED: DEXTROSE (50%) 50ML SYRG IV PRN (19:15)
[2025-02-21] MEDS ORDERED: HYDROcodone-ACET 5/325MG TAB PO PRN (19:15)
[2025-02-21] MEDS ORDERED: MORPHINE SULFATE INJ 2 MG/ml SYRG IV PRN (19:15)
[2025-02-21] MEDS: SODIUM CHLORIDE 0.9% 1,000 ML IV ONE (20:21)
[2025-02-21 20:24] VITALS: PULSE 82; RESP 16; O2SAT 96
[2025-02-21] MEDS: PANTOPRAZOLE 40 MG/10 ML VIAL INJ IV ONE (20:57)
[2025-02-21 21:27] LABS: Urine Protein, UAD Negative (Negative)
--- NOTE | 2025-02-21 22:03 | DVHHP2 ---
History of Present Illness Reason for Visit: Flank pain History of Present Illness 64-year-old female presents for evaluation of flank pain. Patient reports a two day history of right-sided sharp flank pain. Reports having some nausea. No abdominal pain. Reports having intermittent chills. Denies dysuria or hematuria. No other acute complaints reported. Past Medical History Hypertension, dyslipidemia, diabetes mellitus Past Surgical History Cholecystectomy and appendectomy Family History Noncontributory Smoke: No ALCOHOL: none Drugs: None Lives: with Family Review of Systems Review of Systems Review of systems are currently negative otherwise addressed in HPI. Allergies: Coded Allergies: NO KNOWN ALLERGIES (Unverified , 05/18/15) Medications Current Medications Medications Dose Ordered Sig/Lynsey Route Start Time Stop Time Status Last Admin Dose Admin Pantoprazole Sodium 40 mg DAILY IV 02/22/25 10:00 Amlodipine Besylate 5 mg DAILY PO 02/22/25 10:00 Acetaminophen/ Hydrocodone Bitart 1 tab Q4HP PRN PO 02/21/25 19:15 Ondansetron HCl 4 mg Q4HP PRN IV 02/21/25 19:15 Acetaminophen 650 mg Q6HP PRN PO 02/21/25 19:15 Morphine Sulfate 2 mg Q6HPRN PRN IV 02/21/25 19:15 Diagnostic Test (Pha) 1 strip ACHS 02/21/25 22:00 Insulin Human Regular ACHS SC 02/21/25 22:00 Dextrose 50 ml UD PRN IV 02/21/25 19:15 Exam Vital Signs Vital Signs Date Time Temp Pulse Resp B/P (MAP) Pulse Ox O2 Delivery O2 Flow Rate FiO2 02/21/25 20:24 82 16 96 Room Air* 0 21 02/21/25 20:08 144/44 (77) 02/21/25 17:52 98.0 98.0 Exam Gen: 64-year-old female in mild distress Skin: Warm, dry, normal color and texture, no rash. HEENT: Normocephalic atraumatic, mucous membranes moist and pink. Neck: Cervical and supraclavicular nodes normal without enlargement, trachea is midline, thyroid gland is normal without masses. Pulmonary: Clear to auscultation and percussion bilaterally. Cardiac: Regular rate and rhythm. No murmur Abdomen: Soft, right CVA tenderness, nondistended, bowel sounds present all 4 quadrants, no guarding, no rigidity, no organomegaly. Extremities: No cyanosis, clubbing, no edema Neuro: Cranial nerves II through XII grossly intact, normal affect and speech, no focal motor deficits. Labs/Xrays ORDERING PHYSICIAN: JARRET PAINTER MD PROCEDURE(s): ABPL - CT AB PEL WO CON-NO ORAL OR IV REASON: right flank pain ORDER NUMBER(s): [id number], ACCESSION NUMBER(s): [id number] CLINICAL INFORMATION: Right flank pain. TECHNIQUE: Axial CT images of the abdomen and pelvis were obtained without IV contrast. Coronal and sagittal reformatted images were obtained, reviewed, and stored. Evaluation of the parenchymal organs is limited without IV contrast. Evaluation of the bowel and mesentery is limited without oral contrast. All CT scans at this medical facility are performed using dose modulation techniques as appropriate to a performed exam including the following: Automated exposure control was utilized; adjustment of the MA and/or KV according to patient size; and use of iterative reconstruction technique. CTDIvol = 6.75 mGy DLP = 360.32 mGy-cm COMPARISON: None FINDINGS: Examination is limited due to prominent beam hardening artifact from the patient being scanned with arms at sides hands overlying the upper abdomen. Lung bases: Mild atelectasis in the lung bases. Liver: Grossly unremarkable in its noncontrast enhanced appearance. No abnormal density or focal lesion identified. Biliary: Gallbladder is not visualized, likely surgically absent. Spleen: Unremarkable. Pancreas: Grossly unremarkable in its noncontrast enhanced appearance. Adrenal glands: Unremarkable. No mass. Kidneys: No hydronephrosis. No renal or ureteral calculi. Aorta/Vascular: Moderate atherosclerotic calcification. No abdominal aortic aneurysm. Retroperitoneum: No mass or lymphadenopathy. Bowel/mesentery: No small bowel obstruction. Nonspecific nondilated fluid-filled small bowel loops. Appendix is visualized and appears unremarkable. Pelvic organs: There is an IUD in the fundal endometrial canal, in expected position. Bladder: Mild circumferential thickening of the bladder wall Abdominal wall: No mass or hernia. Bones: No acute fracture or suspicious intraosseous lesion. IMPRESSION: 1. Nonspecific nondilated fluid-filled small bowel loops. Findings may be seen with ileus or enteritis in the appropriate clinical setting. No small bowel obstruction. 2. Nonspecific mild circumferential thickening of the bladder wall. Correlate clinically to exclude cystitis. 3. No hydronephrosis. No renal or ureteral calculi. 4. Limited examination for the reasons described above. Labs Test 02/21/25 20:41 02/21/25 15:11 Range/Units Urine Color Yellow Yellow Urine Clarity Clear Clear Urine pH 6.0 5.0-9.0 Urine Specific [place] 1.015 1.001-1.035 Urine Protein Negative Negative Urine Ketones 1+ H Negative Urine Blood Trace H Negative /uL Urine Nitrite Negative Negative Urine Bilirubin Negative Negative Urine Urobilinogen Normal Negative mg/dL Urine Leukocyte Esterase 3+ Negative /uL Urine RBC 6 0 - 4 /hpf Urine Microscopic WBC 42 H 0-5 /HPF Urine Squamous Epithelial Cells Few <5 /hpf Urine Bacteria Few H None Seen /hpf Urine Mucus Few None Seen Urine Glucose Normal Normal mg/dL White Blood Count 8.4 4.4-10.8 10^3/uL Red Blood Count 3.90 L 4.0-5.20 10^6/uL Hemoglobin 12.5 12.2-16.2 g/dL Hematocrit 36.7 36.0-46.0 % Mean Corpuscular Volume 94.1 80.0-100.0 fL Mean Corpuscular Hemoglobin 32.1 H 28.0-32.0 pg Mean Corpuscular Hemoglobin Concent 34.1 32.0-36.0 g/dL Red Cell Distribution Width 13.7 11.8-14.3 % Platelet Count 312 140-450 10^3/uL Mean Platelet Volume 6.6 L 6.9-10.8 fL Neutrophils (%) (Auto) 61.9 37.0-80.0 % Lymphocytes (%) (Auto) 29.5 10.0-50.0 % Monocytes (%) (Auto) 6.5 0.0-12.0 % Eosinophils (%) (Auto) 1.3 0.0-7.0 % Basophils (%) (Auto) 0.8 0.0-2.0 % Neutrophils # (Auto) 5.2 1.6-8.6 10 ^3/uL Lymphocytes # (Auto) 2.5 0.4-5.4 10 ^3/uL Monocytes # (Auto) 0.5 0-1.3 10 ^3/uL Eosinophils # (Auto) 0.1 0-0.8 10 ^3/uL Basophils # (Auto) 0.1 0-0.2 10 ^3/uL Nucleated Red Blood Cells 0.1 % Sodium Level 140 136-145 mmol/L Potassium Level 3.9 3.5-5.1 mmol/L Chloride Level 105 98-107 mmol/L Carbon Dioxide Level 26 20-31 mmol/L Anion Gap 9 5-15 Blood Urea Nitrogen 9 9-23 mg/dL Creatinine 0.55 0.550-1.02 mg/dL Glomerular Filtration Rate Calc 101 >90 mL/min BUN/Creatinine Ratio 16.4 10.0-20.0 Serum Glucose 91 74-106 mg/dL Calcium Level 10.2 8.7-10.4 mg/dL Assessment/Plan Assessment/Plan Assessment Acute pyelonephritis Hypertension Diabetes mellitus Plan Admit the patient to Med surge to the hospitalist Juancarlos Pain management Continue treatment per orders. Plan discussed with: Patient My Orders Orders - KARLA ESTRADA AGACNGumaro Procedure Category Date Status Time Pantoprazole PHA 02/22/25 In Process (Protonix) 10:00 Sodium Chloride 0.9% PHA 02/21/25 In Process 19:15 Amlodipine Tablet PHA 02/22/25 In Process (Norvasc Tablet) 10:00 Hydrocodone-Acet PHA 02/21/25 In Process 5/325mg Tab ([place] 19:15 Ondansetron Hcl PHA 02/21/25 In Process (Zofran) 19:15 Condition: Stable DONALDO 02/21/25 In Process 19:03 Acetaminophen Tablet PHA 02/21/25 In Process (Tylenol Tablet) 19:15 Bedrest With Bathroom DONALDO 02/21/25 In Process Privileg 19:03 Morphine Sulfate PHA 02/21/25 In Process Injection 19:15 Glucose Blood PHA 02/21/25 In Process (Accu-Chek Comfort 22:00 Insulin R (Human) PHA 02/21/25 In Process (Insulin R) 22:00 Dextrose 50% Syringe PHA 02/21/25 In Process 19:15 Admit ADMIT 02/21/25 Verified 21:57 Ceftriaxone Ivpb PHA 02/22/25 Verified Rocephin 09:00 Ceftriaxone Ivpb PHA 02/21/25 Verified Rocephin 22:00 Date of Service: Feb 21, 2025 Billing Provider: KARLA ESTRADA Common Visit Codes: [id number] INP/OBS CARE (MOD) KARLA ESTRADA Feb 21, 2025 22:03
[2025-02-21] MEDS: ACCU-CHEK COMFORT CURVE STRIP VI SCH (23:32)
[2025-02-21] MEDS: InsuLIN REG 1unit/0.01ml Soln (100units/ml) SC SCH (23:40)
[2025-02-21] MEDS: cefTRIAXone 1GM/50ML D5W 50 ML IV ONE (23:41)
[2025-02-22] VITALS (8 sets, daily range): BP systolic 107–138; BP diastolic 64–89; PULSE 60–89; RESP 14–18; TEMP 97.4–97.8; O2SAT 97–99
[2025-02-22] MEDS: PANTOPRAZOLE 40 MG/10 ML VIAL INJ IV SCH (09:29)
[2025-02-22] MEDS: cefTRIAXone 1GM/50ML D5W 50 ML IV SCH (09:48)
--- NOTE | 2025-02-22 10:14 | DVHPN2 ---
Progress Note Date Seen: Feb 22, 2025 Medical Necessity Reason Pt with a Central, PICC or Fol: No Subjective Patient reports: No new complaints Review of Systems: HEENT:Normal, CVS:Normal, RESPIRATORY:Normal, GI:Normal, :Normal, MSK:Normal, NEURO:Normal Objective vital signs Vital Sign Date Time Temp Pulse Resp B/P (MAP) Pulse Ox O2 Delivery O2 Flow Rate FiO2 02/22/25 09:30 132/74 02/22/25 08:26 97.8 60 15 99 97.8 02/22/25 08:00 Room Air* 0 21 Total Intake and Output 02/21/25 02/21/25 02/22/25 15:00 23:00 07:00 Intake Total 50 ml Balance 50 ml medications Current Medications Medications Dose Ordered Sig/Lynsey Route Start Time Stop Time Status Last Admin Dose Admin Pantoprazole Sodium 40 mg DAILY IV 02/22/25 10:00 02/22/25 09:29 40 MG Amlodipine Besylate 5 mg DAILY PO 02/22/25 10:00 02/22/25 09:30 5 MG Acetaminophen/ Hydrocodone Bitart 1 tab Q4HP PRN PO 02/21/25 19:15 Ondansetron HCl 4 mg Q4HP PRN IV 02/21/25 19:15 Acetaminophen 650 mg Q6HP PRN PO 02/21/25 19:15 Morphine Sulfate 2 mg Q6HPRN PRN IV 02/21/25 19:15 Diagnostic Test (Pha) 1 strip ACHS 02/21/25 22:00 02/22/25 06:21 1 STRIP Insulin Human Regular ACHS SC 02/21/25 22:00 Dextrose 50 ml UD PRN IV 02/21/25 19:15 Ceftriaxone Sodium 50 ml @ 100 mls/hr DAILY@09 IV 02/22/25 09:00 02/22/25 09:48 100 MLS/HR Examination: GENERAL:Normal, HEENT:Normal, NECK:Normal, LUNGS:Normal, CVS:Normal, ABDOMEN:Normal, MSK:Normal, MSK:Abnormal (lower back tendernss), SKIN:Normal, NEURO:Normal, :Normal laboratory and microbiology Laboratory Tests 02/21/25 15:11 Test 02/21/25 15:11 Range/Units Serum Glucose 91 74-106 mg/dL Problem List/Assessment/Plan Problem List/Assessment/Plan #1 back pain: mri spine #2 uti: iv rocephin #3 dm: ssi #4 htn #5 hyperlipidemia advance care planning- full code- time spent 18 mins Plan discussed with: Patient Date of Service: Feb 22, 2025 Billing Provider: KARLA WANG MD Common Visit Codes: [id number] INP/OBS CARE(HIGH) Secondary Visit Codes: [id number] CARE PLAN 30 MINUTES KARLA WANG MD Feb 22, 2025 10:14
--- NOTE | 2025-02-22 12:35 | DVH ---
MR lumbar spine HISTORY: back pain TECHNIQUE: MR was performed with a surface coil at 1.5 T magnet. Sagittal, axial and coronal T1 and T 2-weighted images were obtained. FINDINGS: Mild dextroscoliosis. The lumbar vertebrae are normal in height and signal intensity L1-2 no narrowing of the central canal and neural foramina L2-3 no narrowing of the central canal and neural foramina L3-4 no narrowing of the central canal and neural foramina L4-5 2 mm anterolisthesis due to degenerative facet joint disease. Slight narrowing of the neural fo ramina without nerve root compression L5-S1 2 mm anterolisthesis due to degenerative facet joint disease with slight narrowing of the neura l foramina. No nerve root compression Cord ends at T12-L1 and is normal in appearance IMPRESSION: 1. There are 2 mm anterolisthesis at L4-5 and L5-S1 due to degenerative facet joint disease. There is no nerve root compression
[2025-02-22] MEDS: KETOROLAC TROMETH 30 MG/ML 1ML VIAL IV ONE (12:40)
[2025-02-22] MEDS: LORazepam 2MG/ML-1ML VIAL IV ONE (12:40)
[2025-02-23 01:00] VITALS: BP 113/60; PULSE 56; RESP 17; TEMP 97.3; O2SAT 99
[2025-02-23 04:54] VITALS: BP 122/64; PULSE 61; RESP 18; TEMP 97.2; O2SAT 100
[2025-02-23 06:51] LABS: Hematocrit 40.5 % (36.0-46.0); Hemoglobin 13.5 g/dL (12.2-16.2); Mean Corpuscular Hemoglobin 31.8 pg (28.0-32.0); Mean Corpuscular Volume 95.4 fL (80.0-100.0); Nucleated Red Blood Cells % 0.1 %
[2025-02-23 07:11] LABS: Alanine Aminotransferase 10 U/L (7-40); Albumin 4.5 g/dL (3.2-4.8); Alkaline Phosphatase 57 U/L (46-116); Anion Gap 11 (5-15); BUN/Creatinine Ratio 16.7 (10.0-20.0); Bilirubin, Total 0.7 mg/dL (0.2-1.0); Blood Urea Nitrogen 9 mg/dL (9-23); Carbon Dioxide 26 mmol/L (20-31); Chloride 106 mmol/L (98-107); Glucose 77 mg/dL (74-106); Potassium 3.6 mmol/L (3.5-5.1); Sodium 143 mmol/L (136-145); Total Protein 6.9 g/dL (5.7-8.2)
[2025-02-23 07:16] LABS: Calcium 10.5 mg/dL (8.7-10.4)
[2025-02-23 09:00] VITALS: BP 129/72; PULSE 65; RESP 16; TEMP 96.1; O2SAT 98
[2025-02-23] MEDS ORDERED: TRAM-626 PO (10:04)
[2025-02-23] MEDS ORDERED: CEFD300C2 PO (10:04)
[2025-02-23] MEDS ORDERED: KETO10TA PO (10:05)
--- NOTE | 2025-02-23 10:23 | DVHDS2 ---
Discharge Summary Date of Admission Feb 21, 2025 at 19:03 Date of Discharge: Feb 23, 2025 Labs/Diagnostic Data: Laboratory Results Test 02/23/25 05:50 02/23/25 05:16 02/21/25 20:41 POC Glucose 78 mg/dl (70-106) White Blood Count 6.6 10^3/uL (4.4-10.8) Red Blood Count 4.24 10^6/uL (4.0-5.20) Hemoglobin 13.5 g/dL (12.2-16.2) Hematocrit 40.5 % (36.0-46.0) Mean Corpuscular Volume 95.4 fL (80.0-100.0) Mean Corpuscular Hemoglobin 31.8 pg (28.0-32.0) Mean Corpuscular Hemoglobin Concent 33.3 g/dL (32.0-36.0) Red Cell Distribution Width 13.9 % (11.8-14.3) Platelet Count 329 10^3/uL (140-450) Mean Platelet Volume 7.5 fL (6.9-10.8) Neutrophils (%) (Auto) 50.5 % (37.0-80.0) Lymphocytes (%) (Auto) 37.5 % (10.0-50.0) Monocytes (%) (Auto) 8.0 % (0.0-12.0) Eosinophils (%) (Auto) 3.3 % (0.0-7.0) Basophils (%) (Auto) 0.7 % (0.0-2.0) Neutrophils # (Auto) 3.3 10 ^3/uL (1.6-8.6) Lymphocytes # (Auto) 2.5 10 ^3/uL (0.4-5.4) Monocytes # (Auto) 0.5 10 ^3/uL (0-1.3) Eosinophils # (Auto) 0.2 10 ^3/uL (0-0.8) Basophils # (Auto) 0 10 ^3/uL (0-0.2) Nucleated Red Blood Cells 0.1 % Sodium Level 143 mmol/L (136-145) Potassium Level 3.6 mmol/L (3.5-5.1) Chloride Level 106 mmol/L (98-107) Carbon Dioxide Level 26 mmol/L (20-31) Anion Gap 11 (5-15) Blood Urea Nitrogen 9 mg/dL (9-23) Creatinine 0.54 mg/dL (0.550-1.02) Glomerular Filtration Rate Calc 101 mL/min (>90) BUN/Creatinine Ratio 16.7 (10.0-20.0) Serum Glucose 77 mg/dL (74-106) Hemoglobin A1c 5.7 % A1C (<5.7) Calcium Level 10.5 mg/dL (8.7-10.4) Total Bilirubin 0.7 mg/dL (0.2-1.0) Aspartate Amino Transferase (AST) 15 U/L (13-40) Alanine Aminotransferase (ALT) 10 U/L (7-40) Alkaline Phosphatase 57 U/L (46-116) Total Protein 6.9 g/dL (5.7-8.2) Albumin 4.5 g/dL (3.2-4.8) Urine Color Yellow (Yellow) Urine Clarity Clear (Clear) Urine pH 6.0 (5.0-9.0) Urine Specific [place] 1.015 (1.001-1.035) Urine Protein Negative (Negative) Urine Ketones 1+ (Negative) Urine Blood Trace /uL (Negative) Urine Nitrite Negative (Negative) Urine Bilirubin Negative (Negative) Urine Urobilinogen Normal mg/dL (Negative) Urine Leukocyte Esterase 3+ /uL (Negative) Urine RBC 6 /hpf (0 - 4) Urine Microscopic WBC 42 /HPF (0-5) Urine Squamous Epithelial Cells Few /hpf (<5) Urine Bacteria Few /hpf (None Seen) Urine Mucus Few (None Seen) Urine Glucose Normal mg/dL (Normal) Other Laboratory Tests 02/23/25 05:16 Brief Hx & Hospital Course: SEE DICTATED NOTE Condition at Discharge: Good Final Diagnosis/Problems List uti Discharge Disposition: Home Discharge Instruct/Medications Diet: Cardiac 2g Na,low cholest Activity: No Restrictions, As Tolerated Follow Up/Referral: fu with pcp in 2 wks Medications: resume home meds script to pharmacy Scheduled Amlodipine Besylate (Amlodipine Besylate), 1 TAB PO DAILY, (Reported) Aspirin (Aspirin 81), 81 MG PO DAILY Aspirin (Aspir-81), 81 MG PO DAILY Cefdinir (Cefdinir), 300 MG PO BID Ciprofloxacin Hcl (Cipro), 1 TAB PO BID Lisinopril (Lisinopril), 1 TAB PO DAILY, (Reported) Metformin Hydrochloride (Metformin Hcl), 1 TAB PO BID, (Reported) Scheduled PRN Ketorolac Tromethamine (Ketorolac Tromethamine), 1 TAB PO TID PRN Miscellaneous Medications Atorvastatin Calcium (Atorvastatin Calcium), 1 TAB PO, (Reported) Discharge Statement: "Patient was advised to return to the ER or call 911 if any headaches, dizziness, shortness of breath, chest pain, abdominal pain, bleeding, fevers, or worsening of medical condition. Patient was counseled about treatment plan, medications, possible side effects, patientverbalized understanding. All questions were answered to the best of my ability. This discharge took greater then 30 minutes in planning, reviewing documentation, counseling the patient, and discussing with other team members." ASSESSMENT ASSESSMENT Assessment uti Date of Service: Feb 23, 2025 Billing Provider: KARLA WANG MD Common Visit Codes: 32456-DII/OBS DISCH DAY >30min KARLA WANG MD Feb 23, 2025 10:23
--- NOTE | 2025-02-23 10:38 | DVHDS ---
HISTORY OF PRESENT ILLNESS: The patient is a 64-year-old lady who is admitted with complaints of back and flank pain and a history of hypertension, hyperlipidemia, and diabetes. HOSPITAL COURSE: The patient had evidence of a UTI. She had a CT of the abdomen and pelvis that showed thickening of the bladder wall. The patient had an MRI of the lumbar spine that showed 2 mm listhesis at L4-L5 and L5-S1. I discussed in detail with the daughter the findings as well as gave her copies of the scans. Her A1c was 5.7. The patient will now be discharged home to be on cefdinir 300 mg b.i.d. for 7 days and ketorolac p.r.n. for pain. She will follow up with the primary and is to repeat her urine exam. 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 * UTI with likely cystitis. * Diabetes mellitus. * Hypertension. * Hyperlipidemia. Time spent in discharge planning and review of plan with the patient and nursing was 37 minutes. MD SUSHILA Godinez/ELISE TID: [id number] RECEIPT: [id number]
[2025-02-23 11:51] VITALS: BP 129/72; PULSE 71; RESP 18; TEMP 35.6; O2SAT 96
[2025-02-23 13:00] VITALS: BP 123/89; PULSE 71; RESP 18; TEMP 96.3; O2SAT 96
== END 2025-02-23 13:00 | disposition home or self-care (01) | DRG 690 ==
LOC: ER 14:41 → OVERFLOW 19:03 → CENTRAL 21:58
PROVIDERS: ADMIT Internal Medicine; ATTEND Internal Medicine
DX: N30.00 Acute cystitis without hematuria (principal); K56.7 Ileus, unspecified; E11.9 Type 2 diabetes mellitus without complications; I10 Essential (primary) hypertension; M47.899 Other spondylosis, site unspecified; K52.9 Noninfective gastroenteritis and colitis, unspecified; E78.5 Hyperlipidemia, unspecified; M54.9 Dorsalgia, unspecified; Z90.49 Acquired absence of other specified parts of digestive tract
CPT/HCPCS: 36415; 72148; 74176; 80048; 80053; 81001; 82962; 83036; 85025; 96374; 97163; G0378; J1815; J1885; J2470

== ENCOUNTER 2025-03-09 11:05 | Emergency (ER) | payer MEDICARE ==
[~2025-03-09] VITALS: Ht 160 cm; Wt 50.0 kg
[~2025-03-09 11:05] MED LIST changes: +CEFD300C2 PO; +KETO10TA PO
--- NOTE | 2025-03-09 11:10 | ED.PDOC ---
GI ASSESSMENT HPI Comments HPI: 64y F who presents to the ED via EMS for chief complaint of abdominal pain - pt states she has been having RLQ abdominal pain for the past 1x month - pt states she went to urgent care today for evaluation and urgent care provider states they felt palpable mass in abdomen and wanted pt to get further evaluation and EMS was called - EMS arrived on scene and pt otherwise had stable vitals and pt was brought to the ED without any interventions performed - pt in the ED, otherwise denies nausea, vomiting, diarrhea, fever, cough, chills, dysuria, hematuria or associated symptoms - pt denies any other symptoms at this time Past Medical history: DM, HTN, hyperlipidemia, kidney stones Past Surgical history: appendectomy, cholecystectomy Medications: metformin, lisinopril, amlodipine, atorvastatin Social History: Denies smoking, ETOH, and drug use. Allergies: NKDA HPI: Poor Historian. REVIEW OF SYSTEMS: CONSTITUTIONAL: Denies acute: fever, diaphoresis, chills, generalized weakness. HEAD: Denies acute: headache, photophobia Eyes: Denies acute: Double vision, vision loss, eye pain, eye discharge. EARS: Denies acute: tinnitus, hearing loss, ear discharge, ear pain, THROAT: Denies acute: sore throat, swelling, difficulty swallowing , pain with swallowing, change in voice. NECK: Denies acute: neck pain, neck swelling, stiff neck. HEART: Denies acute : chest pain, palpitations, LUNGS: Denies acute: SOB, wheezing, cough, hemoptysis ABDOMEN: Denies acute: , Nausea, Vomiting, diarrhea, melena , hematemesis, hematochezia SKIN: Denies acute: rash, redness, lesions, itchiness. EXTREMITIES: Denies acute: calf pain, numbness, tingling, weakness, denies pain in extremity. Denies acute: Low back pain. Neuro: Denies acute: focal neurological deficit, motor or sensory focal neurological deficit, tremors, seizure like activity, confusion, dizziness, change in mental status, loss of bowel or bladder function, cauda equina like symptoms. : Denies acute: dysuria, hematuria, increase in urinary frequency. PSYCH: Denies acute: hallucination, suicidal ideation, homicidal ideation. FEMALE: Denies acute: abnormal vaginal bleeding, foul odor, unusual discharge. PHYSICAL EXAM: General: ------mild--acute distress, awake and alert. Head: normocephalic, atraumatic. Neck: supple, trachea is midline, no swelling. Throat: Normal phonation. Eyes:, no erythema, no purulent discharge, no proptosis, no icterus. Heart: regular rate, regular rhythm, no significant murmur appreciated. Lungs: no apparent respiratory distress, Able to speak in full sentences. No wheezing, no rhonchi, no crackles. No stridors Clear to auscultation bilaterally. Abdomen: Right lower quadrant tender to palpation, non distended, soft, no guarding, no rebound, + bowel sounds. Neuro: Awake, Alert, oriented to name, self, situation, follows commands GCS=15. Speech is normal. Skin: no petechia, no purpura, no cyanosis, non-pale, not jaundice. Lower extremities: --no - Pitting edema no deformity, no focal swelling, no calf TTP. Makes eye contact. moves all four extremities. Face: no apparent facial droop. Right CVA tenderness to percussion ED COURSE: DISCLAIMER: This medical document was created using an electronic medical record system with voice recognition software and computerized dictation system. Although this document has been carefully reviewed, there might still be some phonetic and typographical errors. Occasional wrong-word or "sound-alike" substitutions may have occurred due to the inherent limitations of voice recognition software. These areas are purely typographical due to imperfections of the software pr ograms and do not reflect any compromise in the patient's medical care. Please read the chart carefully and recognize, using context, where these substitutions have occurred. Time Seen by MD: 11:09 Primary Care Provider: NONE Reviewed Notes: Medications, Allergies Allergies: Coded Allergies: NO KNOWN ALLERGIES (Unverified , 05/18/15) Home Meds Active Scripts Nitrofurantoin Monohydrate Mac (Macrobid) 100 Mg Cap, 100 MG PO BID for 7 Days, #14 CAP Prov:TRISHA FERNANDEZ DO 03/09/25 Ketorolac Tromethamine (Ketorolac Tromethamine) 10 Mg Tab, 1 TAB PO TID PRN for 5 Days, #15 TAB Prov:KARLA WANG MD 02/23/25 Cefdinir (Cefdinir) 300 Mg Cap, 300 MG PO BID for 7 Days, #14 CAP Prov:KARLA WANG MD 02/23/25 Aspirin (Aspir-81) 81 Mg Tab, 81 MG PO DAILY for 60 Days, #60 TAB 0 Refills Prov:KIERA LAINEZ NP 03/02/23 Aspirin (ASPIRIN 81) 81 Mg Tab, 81 MG PO DAILY, #90 TAB Prov:JIMMIE MOON MD 11/17/22 Ciprofloxacin Hcl (Cipro) 500 Mg Tab, 1 TAB PO BID, #14 TAB Prov:JIMMIE MOON MD 11/17/22 Reported Medications Atorvastatin Calcium (ATORVASTATIN CALCIUM) 20 Mg Tab, 1 TAB PO 11/17/22 Lisinopril (Lisinopril) 5 Mg Tab, 1 TAB PO DAILY 11/17/22 Amlodipine Besylate (Amlodipine Besylate) 5 Mg Tab, 1 TAB PO DAILY 11/17/22 Metformin Hydrochloride (Metformin Hcl) 1,000 Mg Tab, 1 TAB PO BID 11/17/22 Information Source: Patient, Emergency Med Personnel Mode of Arrival: EMS Past Medical History PAST MEDICAL HISTORY: Depression, DM, High Lipids, HTN Surgical History: Appendectomy, Cholecystectomy 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 Was a procedure done?: No GI differential Dx Differential Diagnosis: Other (DDX include Diverticulitis, colitis, gastroenteritis, acute abdomen, SBO, enteritis, constipation, volvulus, appendicitis, Gallbladder disease, choledocolithiasis, ascending cholangitis, pancreatitis, intraAbdominal mass/neoplasm, hepatitis, UTI, pylonephritis, kidney stone, aneurysm, dissection, Inflammatory bowel disease, gastroparesis, ischemic bowel, ovarian torsion, ovarian cyst/mass, tubo-ovarian abscess, PID, STD.) X-Ray, Labs, Meds, VS Vital Signs Date Time Temp Pulse Resp B/P (MAP) Pulse Ox O2 Delivery O2 Flow Rate FiO2 03/09/25 16:03 74 19 98 Room Air* 0 21 03/09/25 14:47 97.7 62 18 139/69 (92) 100 97.7 03/09/25 14:47 62 18 100 Room Air 03/09/25 11:19 98.6 72 16 150/92 (111) 98 98.6 Lab Test 03/09/25 14:35 03/09/25 12:06 Range/Units Urine Color Yellow Yellow Urine Clarity Clear Clear Urine pH 6.0 5.0-9.0 Urine Specific [place] 1.021 1.001-1.035 Urine Protein Negative Negative Urine Ketones Negative Negative Urine Blood Negative Negative /uL Urine Nitrite Negative Negative Urine Bilirubin Negative Negative Urine Urobilinogen Normal Negative mg/dL Urine Leukocyte Esterase 1+ Negative /uL Urine RBC 10 0 - 4 /hpf Urine Microscopic WBC 13 H 0-5 /HPF Urine Squamous Epithelial Cells Few <5 /hpf Urine Bacteria None seen None Seen /hpf Urine Mucus Few None Seen Urine Glucose Normal Normal mg/dL White Blood Count 6.1 4.4-10.8 10^3/uL Red Blood Count 4.15 4.0-5.20 10^6/uL Hemoglobin 13.3 12.2-16.2 g/dL Hematocrit 39.5 36.0-46.0 % Mean Corpuscular Volume 95.4 80.0-100.0 fL Mean Corpuscular Hemoglobin 32.0 28.0-32.0 pg Mean Corpuscular Hemoglobin Concent 33.6 32.0-36.0 g/dL Red Cell Distribution Width 13.6 11.8-14.3 % Platelet Count 400 140-450 10^3/uL Mean Platelet Volume 6.9 6.9-10.8 fL Neutrophils (%) (Auto) 59.6 37.0-80.0 % Lymphocytes (%) (Auto) 31.5 10.0-50.0 % Monocytes (%) (Auto) 6.6 0.0-12.0 % Eosinophils (%) (Auto) 1.5 0.0-7.0 % Basophils (%) (Auto) 0.8 0.0-2.0 % Neutrophils # (Auto) 3.6 1.6-8.6 10 ^3/uL Lymphocytes # (Auto) 1.9 0.4-5.4 10 ^3/uL Monocytes # (Auto) 0.4 0-1.3 10 ^3/uL Eosinophils # (Auto) 0.1 0-0.8 10 ^3/uL Basophils # (Auto) 0.1 0-0.2 10 ^3/uL Nucleated Red Blood Cells 0.0 % Sodium Level 143 136-145 mmol/L Potassium Level 3.5 3.5-5.1 mmol/L Chloride Level 109 H 98-107 mmol/L Carbon Dioxide Level 26 20-31 mmol/L Anion Gap 8 5-15 Blood Urea Nitrogen 6 L 9-23 mg/dL Creatinine 0.57 0.550-1.02 mg/dL Glomerular Filtration Rate Calc 100 >90 mL/min BUN/Creatinine Ratio 10.5 10.0-20.0 Serum Glucose 90 74-106 mg/dL Lactic Acid Level 0.8 0.4-2.0 mmol/L Calcium Level 9.6 8.7-10.4 mg/dL Total Bilirubin 0.6 0.2-1.0 mg/dL Aspartate Amino Transferase (AST) 14 13-40 U/L Alanine Aminotransferase (ALT) 9 7-40 U/L Alkaline Phosphatase 63 46-116 U/L Total Protein 7.1 5.7-8.2 g/dL Albumin 4.7 3.2-4.8 g/dL Lipase 33 12-53 U/L [place] [address] Ph: [phone] DIAGNOSTIC IMAGING Diagnostic Imaging Report : [id number] Signed PATIENT: ALLY PRINCEACCT: [id number] UNIT: [id number] : 1960 LOC: ER ROOM / BED: / AGE / SEX: 64 / F ADM STATUS: REG ER SERVICE 1109 ORDERING PHYSICIAN: TRISHA FERNANDEZ DO PROCEDURE(s): ABPL - CT AB PEL WO CON-NO ORAL OR IV REASON: RLQ PAIN, ORDER NUMBER(s): [id number], ACCESSION NUMBER(s): [id number] CT CT AB PEL WO CON-NO ORAL OR IV INDICATION: RLQ PAIN, EXAM DATE: 03/09/2025 12:08 PM COMPARISON: CT CT AB PEL WO CON-NO ORAL OR IV on DOS: 02/21/25 RADIATION DOSE: CTDIvol: mGy, DLP: 236.67 mGy*cm PROCEDURE: Helical CT images were obtained of the abdomen and pelvis without IV contrast Sagittal and coronal reconstructions are provided. ORAL CONTRAST: None. ADDITIONAL IMAGES / REFORMATS: None All CT scans at this medical facility are performed using dose modulation techniques as appropriate to a performed exam including the following: Automated exposure control was utilized; adjustment of the MA and/or KV according to patient size; and use of iterative reconstruction technique. FINDINGS: LUNG BASE: Normal. LIVER: Normal. GALLBLADDER AND BILIARY TREE: No calcified gallstones. Normal caliber wall. No intra- or extrahepatic biliary ductal dilation. PANCREAS: Normal. SPLEEN: Normal. BOWEL: Moderate colonic diverticulosis. The appendix appears normal. ADRENALS: Normal. KIDNEYS AND URETER: Normal. BLADDER: Normal. REPRODUCTIVE ORGANS: There is a IUD in the uterus. LYMPH NODES:No lymphadenopathy. PERITONEUM: No ascites or free air. No other fluid collection. VESSELS: Scattered atherosclerotic calcifications are noted. RETROPERITONEUM: Normal. ABDOMINAL WALL: Normal. BONES: Scattered osseous degenerative changes are noted. IMPRESSION: No acute intraabdominal abnormality. Moderate colonic diverticulosis. The appendix appears normal. ATED BY: DANIELE KRUSE MD DICTATED DATE/TIME: 03/09/251243 SIGNED BY: DANIELE KRUSE MD SIGNED DATE/TIME: 03/09/251243 CC: Time of 1ST Reevaluation: 15:32 Reevaluation 1ST: Improved Patient Education/Counseling: Diagnosis, Treatment Family Education/Counseling: No Family Present Comments MDM: patient presented with the above HPI.--abdominal pain----workup was initiated. patient was found with the above mentioned diagnosis. the following medications were ordered: please refer to order lists of meds and tests obtained by myself Dr. Fernandez. Patient ED course and VS have been stabilized. Patient has been reassessed in the ED and remained in a stable condition. Pertinent incidental findings were discussed with the patient and/or family. Patient/family voices understanding and is agreeable with plan. Patient has been observed in the ED adequate length of time to insure improvement/stability. Escalation of care considered: Consideration of escalation to observation or admission Patient was DISCHARGED home in a stable condition. All the reports of any imaging studies that were ordered by myself were reviewed by myself. SEPSIS Sepsis Screen Physician Orders [facility] (03/09/25 ) Ct Ab Pel Wo Con-No Oral Or Iv (03/09/25 11:09) Electrocardigram (03/09/25 11:09) Vital Signs Date Time Temp Pulse Resp B/P (MAP) Pulse Ox O2 Delivery O2 Flow Rate FiO2 03/09/25 16:03 74 19 98 Room Air* 0 21 03/09/25 14:47 97.7 62 18 139/69 (92) 100 97.7 03/09/25 14:47 62 18 100 Room Air 03/09/25 11:19 98.6 72 16 150/92 (111) 98 98.6 Laboratory Tests Test 03/09/25 12:06 Lactic Acid Level 0.8 mmol/L (0.4-2.0) White Blood Count 6.1 10^3/uL (4.4-10.8) Departure 1 Departure Time of Disposition: 15:31 Impression: Primary Impression: Urinary tract infection Additional Impression: Right lower quadrant abdominal pain Disposition: 01 HOME / SELF CARE / HOMELESS Condition: Stable Additional Instructions: Additional instructions: You MUST follow-up with your primary care/family doctor in 1 to 2 days. If you are unable to see your primary care/family doctor, please return to our emergency room for re-assessment and re-evaluation in 1 to 2 days. Return to the emergency room here in our facility or to the nearest ER JUNIOR if your symptoms change or worsen. CONSULTATIONS: you MUST Follow-up for consultation as soon as possible with: -gastroenterology and OB Gyne and neurology in 1-2 days. Please call for appointment. You MUST call the consultants office yourself to make an appointment. You may need to arrange that through your insurance and/or your primary/family doctor. If you are unable to see the media consultant in 1 to 2 days, you must return to our emergency room (or any other ER of your choice) for re-assessment and re- evaluation. Adequate fluid hydration. Below is a copy of your radiological report for follow up: [address] [address] Ph: [phone] DIAGNOSTIC IMAGING Diagnostic Imaging Report : [id number] Signed PATIENT: ALLY PRINCE ACCT: [id number] UNIT: [id number] : 1960 LOC: ER ROOM / BED: / AGE / SEX: 64 / F ADM STATUS: REG ER SERVICE 1109 ORDERING PHYSICIAN: TRISHA FERNANDEZ DO PROCEDURE(s): ABPL - CT AB PEL WO CON-NO ORAL OR IV REASON: RLQ PAIN, ORDER NUMBER(s): [id number], ACCESSION NUMBER(s): [id number] CT CT AB PEL WO CON-NO ORAL OR IV INDICATION: RLQ PAIN, EXAM DATE: 03/09/2025 12:08 PM COMPARISON: CT CT AB PEL WO CON-NO ORAL OR IV on DOS: 02/21/25 RADIATION DOSE: CTDIvol: mGy, DLP: 236.67 mGy*cm PROCEDURE: Helical CT images were obtained of the abdomen and pelvis without IV contrast Sagittal and coronal reconstructions are provided. ORAL CONTRAST: None. ADDITIONAL IMAGES / REFORMATS: None All CT scans at this medical facility are performed using dose modulation techniques as appropriate to a performed exam including the following: Automated exposure control was utilized; adjustment of the MA and/or KV according to patient size; and use of iterative reconstruction technique. FINDINGS: LUNG BASE: Normal. LIVER: Normal. GALLBLADDER AND BILIARY TREE: No calcified gallstones. Normal caliber wall. No intra- or extrahepatic biliary ductal dilation. PANCREAS: Normal. SPLEEN: Normal. BOWEL: Moderate colonic diverticulosis. The appendix appears normal. ADRENALS: Normal. KIDNEYS AND URETER: Normal. BLADDER: Normal. REPRODUCTIVE ORGANS: There is a IUD in the uterus. LYMPH NODES:No lymphadenopathy. PERITONEUM: No ascites or free air. No other fluid collection. VESSELS: Scattered atherosclerotic calcifications are noted. RETROPERITONEUM: Normal. ABDOMINAL WALL: Normal. BONES: Scattered osseous degenerative changes are noted. IMPRESSION: No acute intraabdominal abnormality. Moderate colonic diverticulosis. The appendix appears normal. ATED BY: DANIELE KRUSE MD DICTATED DATE/TIME: 03/09/251243 SIGNED BY: DANIELE KRUSE MD SIGNED DATE/TIME: 03/09/251243 CC: e-Prescriptions Nitrofurantoin Monohydrate Mac (Macrobid) 100 Mg Cap 100 MG PO BID for 7 Days, #14 CAP Prov: TRISHA FERNANDEZ DO 03/09/25 Discharged With: Self Critical Care Note Critical Care Time?: No I personally scribed for TRISHA FERNANDEZ DO ([email or web address]) on 03/09/25 at 11:10. Electronically submitted by Breanne Majano ([email or web address]). I personally scribed for TRISHA FERNANDEZ DO ([email or web address]) on 03/09/25 at 11:31. Electronically submitted by Breanne Majano ([email or web address]). I personally scribed for TRISHA FERNANDEZ DO ([email or web address]) on 03/09/25 at 12:28. Electronically submitted by Breanne Majano ([email or web address]). I personally scribed for TRISHA FERNANDEZ DO ([email or web address]) on 03/09/25 at 13:01. Electronically submitted by Breanne Majano ([email or web address]). I personally scribed for TRISHA FERNANDEZ DO ([email or web address]) on 03/09/25 at 15:37. Electronically submitted by Breanne Majano ([email or web address]). TRISHA FERNANDEZ DO Mar 09, 2025 11:10
[2025-03-09 12:32] LABS: Hematocrit 39.5 % (36.0-46.0); Hemoglobin 13.3 g/dL (12.2-16.2); Mean Corpuscular Hemoglobin 32.0 pg (28.0-32.0); Mean Corpuscular Volume 95.4 fL (80.0-100.0); Nucleated Red Blood Cells % 0.0 %
--- NOTE | 2025-03-09 12:47 | DVH ---
CT CT AB PEL WO CON-NO ORAL OR IV INDICATION: RLQ PAIN, EXAM DATE: 03/09/2025 12:08 PM COMPARISON: CT CT AB PEL WO CON-NO ORAL OR IV on DOS: 02/21/25 RADIATION DOSE: CTDIvol: mGy, DLP: 236.67 mGy*cm PROCEDURE: Helical CT images were obtained of the abdomen and pelvis without IV contrast Sagittal and coronal reconstructions are provided. ORAL CONTRAST: None. ADDITIONAL IMAGES / REFORMATS: None All C T scans at this medical facility are performed using dose modulation techniques as appropriate to a p erformed exam including the following: Automated exposure control was utilized; adjustment of the MA and/or KV according to patient size; and use of iterative reconstruction technique. FINDINGS: LUNG BASE: Normal. LIVER: Normal. GALLBLADDER AND BILIARY TREE: No calcified gallstones. Normal caliber wall. No intra- or extrahepatic biliary ductal dilation. PANCREAS: Normal. SPLEEN: Normal. BOWEL: Moderate colonic diverticulosis. The appendix appears normal. ADRENALS: Normal. KIDNEYS AND URETER: Normal. BLADDER: Normal. REPRODUCTIVE ORGANS: There is a IUD in the uterus. LYMPH NODES:No lymphadenopathy. PERITONEUM: No ascites or free air. No other fluid collection. VESSELS: Scattered atherosclerotic calcifications are noted. RETROPERITONEUM: Normal. ABDOMINAL WALL: Normal. BONES: Scattered osseous degenerative changes are noted. IMPRESSION: No acute intraabdominal abnormality. Moderate colonic diverticulosis. The appendix appears normal.
[2025-03-09 12:55] LABS: Albumin 4.7 g/dL (3.2-4.8); Alkaline Phosphatase 63 U/L (46-116); Anion Gap 8 (5-15); BUN/Creatinine Ratio 10.5 (10.0-20.0); Calcium 9.6 mg/dL (8.7-10.4); Carbon Dioxide 26 mmol/L (20-31); Glucose 90 mg/dL (74-106); Lipase 33 U/L (12-53); Potassium 3.5 mmol/L (3.5-5.1); Sodium 143 mmol/L (136-145); Total Protein 7.1 g/dL (5.7-8.2)
[2025-03-09 12:56] LABS: Alanine Aminotransferase 9 U/L (7-40); Bilirubin, Total 0.6 mg/dL (0.2-1.0); Blood Urea Nitrogen 6 mg/dL (9-23); Chloride 109 mmol/L (98-107)
[2025-03-09 14:47] VITALS: BP 139/69; TEMP 97.7
[2025-03-09 15:04] LABS: Urine Protein, UAD Negative (Negative)
[2025-03-09] MEDS ORDERED: NITR-87 PO (15:33)
[2025-03-09 16:03] VITALS: PULSE 74; RESP 19; O2SAT 98
== END 2025-03-09 16:05 | disposition home or self-care (01) ==
LOC: ER 11:05 → EDBD 11:05 → ER 16:05
DX: N39.0 Urinary tract infection, site not specified (principal); R10.31 Right lower quadrant pain; E11.9 Type 2 diabetes mellitus without complications; E78.5 Hyperlipidemia, unspecified; I10 Essential (primary) hypertension; Z90.49 Acquired absence of other specified parts of digestive tract; Z87.442 Personal history of urinary calculi; Z79.899 Other long term (current) drug therapy; Z79.84 Long term (current) use of oral hypoglycemic drugs; Z79.82 Long term (current) use of aspirin
CPT/HCPCS: 36415; 74176; 80053; 81001; 83605; 83690; 85025